=== PATIENT | male | born 1985 | race Caucasian/White ===

== ENCOUNTER → 2019-06-21 | Day surgery (SDC) | payer OTHER ==
[~2019-06-21] MED LIST: BUPIVACAINE 0.5%/EPI 30 ML SDV INJ ONE; CEFAZOLIN SOD 1 GM/NS 50ML 100 ML IV ONE; DEXAMETHASONE SOD PHOS INJ 4 MG/ML VIAL ONE; FENTANYL CITRATE/PF 100MCG/2 ML INJ ONE; HYDRALAZINE HCL 20 MG/ML VIAL ONE; LIDOCAINE HCL 2% LOCAL INJ 5 ML SDV VIAL INJ ONE; MIDAZOLAM HCL 2 MG/2 ML VIAL ONE; MORPHINE SULFATE INJ 10 MG/ML ONE; ONDANSETRON HCL INJ 2MG/ML 2ML 2 MG/ML VIAL ONE; PROPOFOL IV EMULSION 10 MG/ML 20 ML VIAL ONE; SEVOFLURANE INHAL SOLN 250 ML PEN BTL ONE
[2019-06-21 14:15] VITALS: BP 128/72
--- NOTE | 2019-06-23 13:47 | Operative Report ---
DATE OF PROCEDURE: 06/21/2019 SURGEON: Aiden Johnston MD PREOPERATIVE DIAGNOSES: Right knee lateral meniscus tear and right knee degenerative joint disease of the knee. POSTOPERATIVE DIAGNOSES: Right knee lateral meniscus tear, right knee degenerative joint disease of the right, and knee intra-articular loose bodies. OPERATIONS AND PROCEDURES PERFORMED: The patient underwent right knee examination under anesthesia, right knee arthroscopy, right knee partial lateral meniscectomy, right knee chondroplasty of the patella, the trochlea, the lateral femoral condyle, and lateral tibial plateau as well as removal of intra-articular loose bodies. PIPEFITTER: OSWALDO Trujillo. ANESTHESIA: General endotracheal intubation anesthesia. IV FLUIDS: Per the anesthesia record. BRIEF DESCRIPTION OF THE PATIENT'S OPERATIVE PROCEDURE: Mr. Albert was taken to the operating room and placed in supine position on the operating table. Following induction of general anesthesia as well as endotracheal intubation, the patient's right lower extremity was examined under anesthesia. He was found to have mild effusion within the knee joint, but otherwise ligamentously stable knee. The patient's lower extremity was prepped and draped in standard surgical fashion. A 2-port technique was used to provide this patient's arthroscopic evaluation of the knee joint. Examination of the suprapatellar pouch and medial and lateral gutters found no evidence of loose bodies. There was, however, chondromalacia of patellar and trochlear surfaces. The scope was advanced to medial compartment. Examination of medial compartment demonstrated no significant chondromalacia. A thorough examination of meniscus demonstrated no meniscus tear. The scope was advanced to the intercondylar notch. Anterior cruciate ligament was identified and found to be intact. Scope was advanced to lateral compartment and intra-articular loose body was encountered. This was removed using a shaver. There was chondromalacia of the articulating surfaces. There was an extensive undersurface tear of the posterior horn of the lateral meniscus. A combination of biting forceps and motorized shaver were used to resect the torn portions of meniscus. A Chondroplasty of the lateral femoral condyle and lateral tibial plateau was performed at this time. The scope was then placed in suprapatellar pouch and a chondroplasty was performed of patella and trochlea. The knee was deflated with sterile normal saline. Each of the portal sites were closed using 4-0 nylon sutures. The portal sites as well as knee itself were injected with 0.5% Marcaine with epinephrine. Sterile dressings were applied. The patient was awakened and taken to postanesthesia care unit in stable condition. Leila Bermeo acted as financial legal assistant for this case and was necessary for the prepping and draping the patient as well as the position of the leg during surgery to allow this case to be successful. MD PINO Henson/NORMA /[id number]
== END | disposition home or self-care (01) ==
LOC: OR 08:45
PROVIDERS: ATTEND Specialist
DX: S83.261A Peripheral tear of lateral meniscus, current injury, right knee, initial encounter (principal); S83.221A Peripheral tear of medial meniscus, current injury, right knee, initial encounter; M23.41 Loose body in knee, right knee; M22.41 Chondromalacia patellae, right knee; M17.11 Unilateral primary osteoarthritis, right knee; X58.XXXA Exposure to other specified factors, initial encounter; Z87.891 Personal history of nicotine dependence
CPT/HCPCS: 29881; J0360; J0690; J1100; J2001; J2250; J2270; J2405; J2704; J3010